=== PATIENT | male | born 1960 | race Caucasian/White ===

== ENCOUNTER 2020-04-26 06:42 | Outpatient (NON) | payer OTHER, SELFPAY ==
[2020-04-28 21:25] LABS: SARS-CoV-2 RNA PCR Positive
== END 2020-04-26 06:43 ==
PROVIDERS: PCP Emergency Medicine; Visit Provider Emergency Medicine
DX: U07.1 COVID-19 (principal); R68.89 Other general symptoms and signs
CPT/HCPCS: 87635; C9803; U0003

== ENCOUNTER 2021-11-30 08:04 | Outpatient (CLI) | payer OTHER, SELFPAY ==
--- NOTE | ~2021-11-30 | NM_ITS ---
EXAMINATION: NM rich stress w perfusion DATE: 11/30/2021 10:54 INDICATION: Chest pain TECHNIQUE: Rest images were obtained following intravenous administration of 10.7 mCi Tc99m tetrofosm in (Myoview). The patient was infused intravenously with Lexiscan (Regadenoson). Then, 34.4 mCi Tc99m tetrofosmin (Myoview) was administered intravenously, and stress images were obtained. Data was sparkle nstructed into short axis and horizontal and vertical long axis SPECT images. Gated SPECT images were also obtained. COMPARISON: None. FINDINGS: There is no definite reversible or fixed perfusion abnormality to suggest ischemia or infar ction. There is normal left ventricular chamber size, wall motion and ejection fraction. Left ventr icular ejection fraction measures 69%. IMPRESSION: 1. Normal myocardial perfusion at rest and during stress. 2. Left ventricular ejection fraction measuring 69%. Reviewed, dictated and finalized at location A.
--- NOTE | 2021-11-30 08:22 | EST_ITS ---
Patient Info Name: Dax Cannon Age: 61 years : 1960 Gender: Male Ht: 73 in Wt: 300 lbs BSA: 2.70 m2 HR: 67 bpm BP: 135 / 80 mmHg Heart Rhythm: Sinus Rhythm Exam Date: 11/30/2021 9:04 AM Exam Location: [facility] Stress Patient Status: Outpatient Admit Date: 11/30/2021 Staff Ordering Physician: Daniel Merlos DO Attending Provider: Daniel Merlos DO Exercise Technologist: Vikki Avina CT Exam Type: CA stress rich w NM Study Info Indications R07.9 - Chest pain, unspecified A regadenoson stress test was performed. Summary 1. 1. Negative lexiscan stress test for ischemic ST changes by ECG criteria. 2. 2. Stable hemodynamics throughout the test. 3. 3. Nuclear scan to follow and will be reported separately. Please correlate with it. 4. 4. Patient informed of the above results. Protocol: Lexiscan Stress ECG Details Stage: REST Duration (min): 1 min : 45 sec HR (bpm): 69 SBP (mmHg): 135 DBP (mmHg): 80 Stage: REST Duration (min): 6 min : 28 sec HR (bpm): 66 SBP (mmHg): 135 DBP (mmHg): 80 Stage: STAGE 1 Duration (min): 0 min : 59 sec HR (bpm): 67 SBP (mmHg): 126 DBP (mmHg): 84 Stage: RECOVERY Duration (min): 1 min : 0 sec HR (bpm): 86 SBP (mmHg): 126 DBP (mmHg): 84 Stage: RECOVERY Duration (min): 2 min : 0 sec HR (bpm): 83 SBP (mmHg): 126 DBP (mmHg): 84 Stage: RECOVERY Duration (min): 3 min : 0 sec HR (bpm): 83 SBP (mmHg): 149 DBP (mmHg): 81 Stage: RECOVERY Duration (min): 3 min : 36 sec HR (bpm): 82 SBP (mmHg): 149 DBP (mmHg): 81 Rest HR: 66 bpm Peak HR: 89 bpm Rest Sys BP: 135 mmHg Peak Sys BP: 149 mmHg Max Pred HR: 161 bpm % Max Pred HR: 55 % Target HR: 137 bpm Max RPP: 13,261 bpm*mmHg Termination Reason: Completed protocol Cardiac Symptoms: Shortness of breath, Headache Total Time: 1 min : 0 sec Rest Frias BP: 80 mmHg Peak Frias BP: 81 mmHg Total Dose: 0.4 mg Resting ECG Sinus rhythm, IRBBB. Stress ECG No ST changes. Arrhythmias None. Report Signatures
== END 2021-11-30 08:05 | disposition home or self-care (01) ==
PROVIDERS: PCP Internal Medicine; Visit Provider Internal Medicine Cardiovascular Disease
DX: R07.89 Other chest pain (principal)
CPT/HCPCS: 78452; 93017; A9502; J2785

== ENCOUNTER 2022-03-21 15:41 | Observation (INO) | payer OTHER, SELFPAY ==
[2022-03-21] VITALS (11 sets, daily range): BP systolic 130–174; BP diastolic 70–99; PULSE 63–80; RESP 13–19; TEMP 36.2–36.6; O2SAT 96–100; BMI 39.7
--- NOTE | ~2022-03-21 | XR_ITS ---
EXAMINATION: XR chest 2V DATE: 03/21/2022 16:04 INDICATION: Chest pain. TECHNIQUE: Frontal and lateral views of the chest were obtained. COMPARISON: Chest 2 views 11/13/2018, chest CT 08/15/2018 FINDINGS: The chest demonstrates clear lungs without pneumonia, pleural effusion, or pneumothorax. Ca rdiomegaly is noted. IMPRESSION: 1. Cardiomegaly. Reviewed, dictated and finalized at location A. IMPRESSION: 1. Cardiomegaly.
--- NOTE | 2022-03-21 15:42 | ECG_ITS ---
Measurements Intervals [place] Rate: 67 P: 31 AL: 172 QRS: -18 QRSD: 97 T: 30 QT: 388 QTc: 410 Interpretive Statements SINUS RHYTHM LOW QRS VOLTAGE IN PRECORDIAL LEADS [QRS DEFLECTION < 1.0 mV IN CHEST LEADS] RIGHT VENTRICULAR CONDUCTION DELAY ABNORMAL ECG COMPARED TO ECG 11/13/2018 17:24:18 NO CHANGES Electronically Signed On 03-22-2022 13:51:08 CDT by Kobe Luevano M.D.
--- NOTE | 2022-03-21 16:17 | ED.CHESTPAIN ---
HPI - Chest Pain General Chief Complaint: Chest Pain Stated Complaint: chest pain Time Seen by Provider: 03/21/22 16:16 Source: patient Mode of arrival: ambulatory Limitations: no limitations History of Present Illness HPI narrative: 62 years old white female drove himself to the emergency room complaining of intermittent chest pain over the last 48 hours, like flutters, with numbness of hands, usually last for 1 to 2 seconds each time, currently patient feeling numbness of the hands. He denies any radiation of pain, diaphoresis. History of hypertension, hyperlipidemia, diabetes, obesity, coronary stent times 06/2005 Related Data Home Medications Medication Instructions Recorded Confirmed aspirin 81 mg chewable tablet 81 mg PO DAILY 06/03/19 10/26/21 Allergies Allergy/AdvReac Type Severity Reaction Status Date / Time No Known Allergies Allergy Verified 10/26/21 09:42 Review of Systems Review of Systems: All systems reviewed & are unremarkable except as noted in HPI and below PMFSH Past Medical History Medical History (Updated 03/21/22 @ 16:40 by Ronnell Felix MD) Coronary artery disease Diabetes mellitus HLD (hyperlipidemia) Hypertension Family History Family History Other Family history of malignant neoplasm Hypertension Social History Social History Smoking status: Never smoker Smoking end date: 06/02/05 Alcohol intake: current Exam Narrative: General appearance: Well-developed, well-nourished Skin: Normal color Head: Normocephalic, nontraumatic Eyes: Clear conjunctiva ENT: Oropharynx normal, ears normal, nose normal Neck: Supple, nontender Chest and respiratory: Airway patent, no respiratory distress, no accessory muscle use Heart: Regular rate/rhythm Abdomen: Soft, nontender, no organomegaly, quiet bowel sounds Vascular: Normal peripheral pulses, normal capillary refill. Musculoskeletal: Normal range of motion, nontender back Neurologic: Alert and oriented ?3, MINERAL ECONOMIST is normal as tested, no gross motor deficit Course Consultations Consultation #1: DR CONN Date: 03/21/22 Time: 16:42 Vital Signs Vital signs: Vital Signs Temperature 36.6 C 03/21/22 16:07 Pulse Rate 80 03/21/22 16:07 Respiratory Rate 18 03/21/22 16:07 Blood Pressure 174/99 H 03/21/22 16:07 Pulse Oximetry 100 03/21/22 16:07 Oxygen Delivery Room Air 03/21/22 16:07 Temperature 36.6 C 03/21/22 16:07 Pulse Rate 80 03/21/22 16:07 Respiratory Rate 18 03/21/22 16:07 Blood Pressure 174/99 H 03/21/22 16:07 Pulse Oximetry 100 03/21/22 16:07 Oxygen Delivery Room Air 03/21/22 16:07 MDM - Chest Pain Differential Diagnosis Differential diagnosis: Likely stable angina, unstable angina pectoris, atypical chest pain and chest pain Imaging Data Radiologist's impression: Impressions Chest X-Ray 03/21/22 16:06 IMPRESSION: 1. Cardiomegaly. ECG Data EKG #1: Attestation: I personally reviewed and interpreted this ECG as follows: ECG completion date: 03/21/22 ECG completion time: 16:35 Interpretation: Normal sinus rhythm at 67 bpm, do low QRS voltage in precordial leads, right bundle branch block, incomplete, incomplete right bundle branch block is new compared to the last EKG on November 13, 2018 Critical Care Time Critical Care Time Critical Care Time: Yes Total Critical Care Time: 30 Discharge Plan Discharge Clinical Impression: Chest pain Patient Disposition: Still a Patient Condition: Stable Additional Instructions: Admit to hospitalist
--- NOTE | 2022-03-21 16:27 | PC.NURSE ---
Patient took 81mg ASA TEAM PRIMARY CARE PHYSICIAN. Per EDP Felix give 243mg ASA.
[2022-03-21 16:42] LABS: Basophils Percent Auto 0.6 % (0.2-1.2); Eosinophils Absolute Auto 0.2 K/mm3 (0-0.3); Eosinophils Percent Auto 2.2 % (0-4.4); Hematocrit 39.8 % (42.0-52.0); Hemoglobin 13.5 g/dL (14.0-18.0); Immature Granulocyte Absolute 0.03 K/mm3 (0.00-0.031); Immature Granulocyte Percent A 0.4 % (0-0.5); Lymphocytes Absolute Auto 1.97 K/mm3 (0.9-3.2); Lymphocytes Percent Auto 29.1 % (18.3-44.2); Mean Corpuscular HGB Conc 33.9 g/dl (32-36); Mean Corpuscular Hemoglobin 31.3 pg (26-34); Mean Corpuscular Volume 92.1 fl (80-100); Mean Platelet Volume 8.6 fl (7.4-10.4); Monocytes Absolute Auto 0.6 K/mm3 (0.1-0.6); Monocytes Percent Auto 8.8 % (2.6-8.5); Neutrophils Percent Auto 58.9 % (45.5-73.1); Platelet Count Result 259 k/mm3 (150-375); Red Blood Count 4.32 M/mm3 (4.6-6.20); Red Cell Distribution Width 12.6 % (11.5-14.5); White Blood Count 6.8 K/mm3 (4.5-10.0)
[2022-03-21] MEDS: ASPIRIN 81 MG CHEWABLE TABLET 324 MG PO (16:45)
[2022-03-21 16:52] LABS: Alanine Aminotransferase 27 U/L (6-50); Albumin Level 4.4 g/dL (3.5-5.1); Alkaline Phosphatase 70 U/L (38-126); Anion Gap 9 mmol/L (8-16); Aspartate Amino Transferase 25 U/L (17-59); Bilirubin,Total 0.6 mg/dL (0.2-1.3); Blood Urea Nitrogen 14 mg/dL (9-20); Calcium 8.9 mg/dL (8.4-10.2); Carbon Dioxide 24 mmol/L (22-30); Chloride 104 mmol/L (98-107); Estimated CRCL calculation 110 ml/min; Estimated Glomerular Filt Rate > 60; Glucose 100 mg/dL (65-110); Lipase 110 U/L (23-300); Potassium 3.9 mmol/L (3.4-5.0); Prothrombin Time 13.2 Seconds (11.1-14.7); Sodium 137 mmol/L (137-145)
[2022-03-21 16:53] LABS: Partial Thromboplastin Time 30.4 SECONDS (22.3-36.8)
--- NOTE | 2022-03-21 16:56 | PM.CNCAR ---
Assessment and Plan Assessment and plan (1) Chest pain: Code(s): R07.9 - Chest pain, unspecified Status: Acute Assessment and Plan: Atypical, probably non-cardiac. 11/30/21 Lexiscan myoview: Negative. EKG is unremarkable. Await troponin. (2) Coronary artery disease: Code(s): I25.10 - Atherosclerotic heart disease of [place] coronary artery without angina pectoris Status: Acute (3) Hypertension: Code(s): I10 - Essential (primary) hypertension Status: Acute Assessment and Plan: Mildly high in ER. Continue Metoprolol. (4) HLD (hyperlipidemia): Qualifiers: Hyperlipidemia type: mixed hyperlipidemia Qualified Code(s): E78.2 - Mixed hyperlipidemia Code(s): E78.5 - Hyperlipidemia, unspecified Status: Acute Assessment and Plan: On Atorvastatin. History of Present Illness History of Present Illness Consult date/time: 03/21/22 16:56 Reason For Visit: chest pain Narrative: 62 yr old man who is my regular cardiology patient presents to ER with chest pain. He has a history of CAD, hypertension, dyslipidemia, covid infection on 04/26/20. Reports that yesterday at rest he had fluttering in his chest for seconds, and since then he felt vague something is not right . He reports bilateral hand numbness, sharp chest pain for 2 seconds, and pain down his left thigh. Due to these symptoms he decided to come in for evaluation. States he gained 30 pounds this past year as he changed jobs and more sedentary. He is more limited with heel pain from prior fracture. Denies chest pain, sob, orthopnea, PND, edema, palpitations. 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 EKG (Sinus rhythm, low voltage in precordial leads.) - 11/17/2015 STRESS TESTS: 11/30/21 Lexiscan myoview: Negative for ischemia. ETT (Negative for ischemia; exercised for 8 minutes.) - 11/17/2015 Review of Systems Constitutional: Constitutional: Reports as per HPI, Denies chills and Denies fever(s) Cardiovascular: Cardiovascular: Reports as per HPI, Reports chest pain, Reports irregular heart rhythm, Denies leg edema and Denies lightheadedness Respiratory: Respiratory: Reports as per HPI and Denies dyspnea Gastrointestinal: Gastrointestinal: Reports as per HPI and Denies abdominal pain Genitourinary: Genitourinary: Reports as per HPI and Denies dysuria Musculoskeletal: Musculoskeletal: Reports as per HPI Neurologic: Reports as per HPI, Denies dizziness and Denies syncope [facility] Past Medical History Medical History (Updated 03/21/22 @ 16:40 by Ronnell Felix MD) Coronary artery disease Diabetes mellitus HLD (hyperlipidemia) Hypertension Family History Family History Other Family history of malignant neoplasm Hypertension Social History Social History Smoking status: Never smoker Smoking end date: 06/02/05 Alcohol intake: current Meds Home Medications and Allergies Home Medications Medication Instructions Recorded Confirmed Type aspirin 81 mg chewable tablet 81 mg PO DAILY 06/03/19 10/26/21 History nitroglycerin 400 mcg/spray See Rx Instructions .Route 12/07/20 10/26/21 Rx translingual .COMPLEX #4.9 grams gabapentin 300 mg capsule 300 mg PO TID #270 caps 02/09/21 10/26/21 Rx atorvastatin 20 mg tablet See Rx Instructions .Route 04/09/21 10/26/21 Rx .COMPLEX #90 tabs metoprolol succinate 25 mg See Rx Instructions .Route 01/23/22 Rx tablet,extended release 24 hr .COMPLEX #90 tabs Allergies Allergy/AdvReac Type Severity Reaction Status Date / Time No Known Allergies Allergy Verified
[2022-03-21 17:04] LABS: Troponin I < 0.012 ng/mL (0.000-0.034)
[2022-03-21 19:06] LABS: Troponin I < 0.012 ng/mL (0.000-0.034)
[2022-03-21] MEDS: METOPROLOL TARTRATE 50 MG TAB 25 MG PO (19:08)
--- NOTE | 2022-03-21 20:17 | ADMGEN ---
This patient, Dax Cannon, was admitted to IMU Room 209-01 at 2015. Patient/family oriented to hospital policies and general routines including ID bracelet, bed and alarms, visiting hours, pain management, procedures, bathroom and other care routines, personal items, smoking policy, room service/diet, and visiting hours. Information on how to activate the Rapid Response Team has been discussed. Patient/Family are encouraged to report perceived risks to care and to ask questions if they do not understand what they are told or what they should do.
[2022-03-21 21:13] LABS: Troponin I < 0.012 ng/mL (0.000-0.034)
[2022-03-21 23:54] LABS: Troponin I < 0.012 ng/mL (0.000-0.034)
--- NOTE | 2022-03-21 23:58 | PM.IMHP ---
H&P: HPI History of Present Illness Date/Time: 03/21/22 23:58 Chief Complaint: CHEST PAIN Narrative: This is a 62-year-old male patient with a history of hypertension and coronary artery disease. The patient stated that he does have 1 stent. The patient states that he sees Dr. lutz. The patient stated that he drove himself to the hospital due to complaints of intermittent chest pain that has lasted over the last 48 hours. He felt like it was fluttering. He had numbness to his hands and this last for 1-2 seconds at a time. The patient denies the diagnosis of diabetes. The patient stated that he did have a stress test in November which was a Lexiscan. Patient's H&H is 13.5 and 39.8 today. He has 2- troponins. His sheet metal mechanic has been consulted. His sheet metal mechanic has seen him in the emergency room. His EKG was read as sinus rhythm with a incomplete right bundle-branch block. The patient had an echo and MUGA scan with EF of 60% grade 2 diastolic dysfunction. This was in 2015. Review of Systems Review of Systems: See HPI All systems reviewed & are unremarkable except as noted in HPI and below Constitutional: Constitutional: Reports as per HPI and Reports no additional constitutional complaints Eyes: Eyes: Reports as per HPI and Reports no additional eye complaints ENT: Reports system reviewed and no additional complaints, except as documented and Reports Normal hearing present Cardiovascular: Cardiovascular: Reports no additional cardiovascular complaints Respiratory: Respiratory: Reports no additional respiratory complaints and Reports no additional respiratory complaints Gastrointestinal: Gastrointestinal: Reports as per HPI and Reports no additional gastrointestinal complaints Musculoskeletal: Musculoskeletal: Reports no additional musculoskeletal complaints Integumentary/Breasts: Skin/Breast: Reports system reviewed and no additional complaints, except as docu and Reports as per HPI Neurologic: Reports system reviewed and no additional complaints, except as documented, Reports as per HPI and Reports Normal hearing present Psychiatric: Psychiatric: Reports no additional psychiatric complaints and Reports as per HPI Endocrine: Endocrine: Reports no additional endocrine complaints Hematologic/Lymphatic: Hematologic/Lymphatic: Reports no additional hematologic/lymphatic complaints Allergic/Immunologic: Allergic/Immunologic: Reports no additional allergic/immunologic complaints PMFSH Past Medical History Medical History Coronary artery disease HLD (hyperlipidemia) Hypertension Surgical History Surgical History H/O foot surgery H/O heart artery stent Family History Family History Other Family history of malignant neoplasm Hypertension Social History Social History (Updated 03/22/22 @ 00:57 by Vera Colon NP) Social History: The patient lives with his and he has no children. 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 His is his durable power of authorization rep for healthcare. He occasionally has a drink of alcohol. Code status full code. Smoking status: Former smoker Smoking end date: 06/02/05 Alcohol intake: current Substance use: never Spiritual care concerns: No Has the Lack of Transportation Kept You From Medical Appointments or From Getting Medications?: No Within the Past 12 Months, Were You Worried Whether Your Food Would Run Out Before You Got Money to Buy More?: Never True What is Your Housing Situation Today?: I Have Housing Are You Worried That in the Next 2 Months, You May Not Have Your Own Housing to Live In?: No Do You Have Trouble Paying Your Heating Or Electricity Bill?: No Do You Have Trouble Paying For Medicines?: No Are You Currently Unemployed and Looking for Work?: No Highest Level of
[2022-03-22] VITALS (11 sets, daily range): BP systolic 121–147; BP diastolic 73–85; PULSE 58–71; RESP 14–18; TEMP 36.1–36.6; O2SAT 94–100
--- NOTE | 2022-03-22 | ECHO_ITS ---
Patient Info Name: Dxa Cannon Age: 62 years : 1960 Gender: Male Ht: 70 in Wt: 304 lbs BSA: 2.68 m2 HR: 65 bpm BP: 132 / 82 mmHg Heart Rhythm: Sinus Rhythm Technical Quality: Fair Exam Date: 03/22/2022 9:17 AM Exam Location: [facility] Pulmonary Patient Status: Outpatient Admit Date: 03/21/2022 Staff Ordering Physician: Daniel Merlos DO Financial Cost Analyst: Iva Gonzalez RDCS Attending Provider: Sid Austin MD Referring Physician: Gaurang CROSS; Exam Type: CA echo doppler color flow Study Info Indications R07.9 - Chest pain, unspecified Complete two-dimensional, color flow and Doppler transthoracic echocardiogram is performed. Summary 1. Complete two-dimensional, color flow and Doppler transthoracic echocardiogram is performed. 2. Left ventricular chamber dimension is normal. 3. Left ventricular systolic function is normal, estimated at 60-65%. 4. There is mildly increased left ventricular wall thickness. 5. The left ventricular diastolic function is grade I diastolic dysfunction. 6. E/e' 11 is mildly elevated. 7. No pulmonary hypertension, estimated pulmonary arterial systolic pressure is 19 mmHg. 8. There is small circumferential pericardial effusion. Left Ventricle E/e' 11 is mildly elevated. Left ventricular chamber dimension is normal. Left ventricular systolic function is normal, estimated at 60-65%. There is mildly increased left ventricular wall thickness. The left ventricular diastolic function is grade I diastolic dysfunction. Right Ventricle Right ventricular systolic function is normal and with normal TAPSE 1.9 cm. Right ventricular chamber dimension is normal. Left Atria Left atrial chamber dimension is normal. Right Atria Right atrial chamber dimension is normal. Aortic Valve The aortic valve is trileaflet. There is no aortic valve stenosis. There is no aortic valve regurgitation. Pulmonic Valve There is no pulmonic regurgitation. Mitral Valve There is no mitral valve stenosis. There is no mitral valve regurgitation. Tricuspid Valve There is no tricuspid valve regurgitation. No pulmonary hypertension, estimated pulmonary arterial systolic pressure is 19 mmHg. Pericardium/Pleural There is small circumferential pericardial effusion. No cardiac tamponade. Inferior Vena Cava Normal inferior vena cava with >50% collapse upon inspiration consistent with normal right atrial pressure, 5 mmHg. Aorta The aortic root size at the sinus of Valsalva is normal. Left Ventricular Outflow Tract Name Value Normal LVOT 2D LVOT Diameter 2.1 cm LVOT Doppler LVOT Peak Gradient 3 mmHg LVOT Mean Gradient 2 mmHg LVOT VTI 19 cm LVOT VTI/AV VTI Ratio 0.8 LVOT Stroke Volume 68 ml LVOT CO 4.3 l/min LVOT CI 1.6 l/min/m2 Pulmonic Valve Name
[2022-03-22 05:13] LABS: Basophils Percent Auto 0.6 % (0.2-1.2); Eosinophils Absolute Auto 0.2 K/mm3 (0-0.3); Eosinophils Percent Auto 2.7 % (0-4.4); Hematocrit 39.4 % (42.0-52.0); Hemoglobin 13.3 g/dL (14.0-18.0); Immature Granulocyte Absolute 0.02 K/mm3 (0.00-0.031); Immature Granulocyte Percent A 0.3 % (0-0.5); Lymphocytes Absolute Auto 1.89 K/mm3 (0.9-3.2); Lymphocytes Percent Auto 29.9 % (18.3-44.2); Mean Corpuscular HGB Conc 33.8 g/dl (32-36); Mean Corpuscular Hemoglobin 30.6 pg (26-34); Mean Corpuscular Volume 90.8 fl (80-100); Mean Platelet Volume 8.6 fl (7.4-10.4); Monocytes Absolute Auto 0.6 K/mm3 (0.1-0.6); Monocytes Percent Auto 9.7 % (2.6-8.5); Neutrophils Absolute Auto 3.6 K/mm3 (1.3-6.7); Neutrophils Percent Auto 56.8 % (45.5-73.1); Platelet Count Result 243 k/mm3 (150-375); Red Blood Count 4.34 M/mm3 (4.6-6.20); Red Cell Distribution Width 12.6 % (11.5-14.5); White Blood Count 6.3 K/mm3 (4.5-10.0)
[2022-03-22 05:33] LABS: Alanine Aminotransferase 24 U/L (6-50); Albumin Level 3.9 g/dL (3.5-5.1); Alkaline Phosphatase 63 U/L (38-126); Anion Gap 9 mmol/L (8-16); Aspartate Amino Transferase 22 U/L (17-59); Bilirubin,Total 0.6 mg/dL (0.2-1.3); Blood Urea Nitrogen 15 mg/dL (9-20); Calcium 8.9 mg/dL (8.4-10.2); Carbon Dioxide 25 mmol/L (22-30); Chloride 104 mmol/L (98-107); Estimated CRCL calculation 101 ml/min; Estimated Glomerular Filt Rate > 60; Glucose 103 mg/dL (65-110); Magnesium 2.2 mg/dL (1.6-2.3); Potassium 4.2 mmol/L (3.4-5.0); Sodium 138 mmol/L (137-145)
--- NOTE | 2022-03-22 08:23 | PM.PNCARD ---
Progress Note: A&P Assessment and Plan (1) Chest pain: Code(s): R07.9 - Chest pain, unspecified Status: Acute Assessment and Plan: Atypical, probably non-cardiac. 11/30/21 Lexiscan myoview: Negative. EKG and troponin are normal. Obtain echo. If echo is normal no further cardiac workup is needed at this time, and keep regular cardiology f/u with me. (2) Coronary artery disease: Code(s): I25.10 - Atherosclerotic heart disease of [place] coronary artery without angina pectoris Status: Acute Assessment and Plan: Stable. (3) Hypertension: Code(s): I10 - Essential (primary) hypertension Status: Acute Assessment and Plan: Stable. (4) HLD (hyperlipidemia): Qualifiers: Hyperlipidemia type: mixed hyperlipidemia Qualified Code(s): E78.2 - Mixed hyperlipidemia Code(s): E78.5 - Hyperlipidemia, unspecified Status: Acute Assessment and Plan: On Atorvastatin. Subjective Date/time seen: 03/22/22 08:23 Interval history: No longer having chest pain or arm pain or left thigh pain. Had some abdominal pain now. No palpitations. Exam Const: General: cooperative, healthy appearing and comfortable Nutritional Appearance: obese Resp: Auscultation: clear to auscultation bilaterally, no crackles, no rales, no rhonchi and no wheezes Cardio: Rate: regular rate Rhythm: regular rhythm Heart sounds: no murmurs Peripheral pulses: dorsalis pedis present GI: GI Palp: No abdominal tenderness and Yes Soft to palpation Neuro: General: oriented to person, oriented to place and oriented to time Extrem: Right lower extremity: no edema Left lower extremity: no edema Objective Data Vital Signs Vital Signs: Vital Signs - 24 hr 03/21/22 16:07 03/21/22 16:27 03/21/22 16:27 Temperature 97.8 F Pulse Rate 80 66 Respiratory Rate 18 Blood Pressure 174/99 H Pulse Oximetry 100 98 Oxygen Delivery Room Air Room Air 03/21/22 16:32 03/21/22 17:13 03/21/22 17:15 Temperature Pulse Rate 68 65 65 Respiratory Rate 15 19 16 Blood Pressure Pulse Oximetry 99 98 98 Oxygen Delivery 03/21/22 17:17 03/21/22 18:45 03/21/22 19:15 Temperature Pulse Rate 64 71 74 Respiratory Rate 19 16 13 Blood Pressure 130/70 Pulse Oximetry 99 99 96 Oxygen Delivery 03/21/22 20:28 03/21/22 22:00 03/21/22 23:30 Temperature 97.2 F L Pulse Rate 63 72 72 Respiratory Rate 16 16 Blood Pressure 147/85 H Pulse Oximetry 100 100 Oxygen Delivery Room Air 03/22/22 00:00 03/22/22 00:00 03/22/22 02:00 Temperature 97 F L Pulse Rate 66 62 62 Respiratory Rate 16 Blood Pressure 147/85 H Pulse Oximetry 100 Oxygen Delivery 03/22/22 04:00 03/22/22 04:00 03/22/22 04:00 Temperature 97.9 F Pulse Rate 58 L 65 65 Respiratory Rate 16 16 Blood Pressure 132/82 Pulse Oximetry 94 94 Oxygen Delivery Room Air 03/22/22 06:00 Temperature Pulse Rate 60 Respiratory Rate Blood Pressure Pulse Oximetry Oxygen Delivery Intake/Output Intake/Output: Intake & Output 03/19/22 03/20/22 03/21/22 03/22/22 23:59 23:59 23:59 23:59 Intake Total 900 Output Total 900 Balance 0 Meds/Results Medications: Active Medications Generic Name Dose Route Start Last Admin Trade Name Freq PRN Reason Stop Dose Admin Acetaminophen 650 mg 03/21/22 16:42 Acetaminophen 325 Mg Tablet PO Q4H PRN Mild Pain (1-3) or Fever Aspirin 81 mg 03/22/22 08:00 Aspirin 81 Mg Chewable Tablet PO DAILY@0800 [facility] Atorvastatin Calcium 20 mg 03/22/22 09:00 Atorvastatin 20 Mg Tablet PO DAILY [facility] Enoxaparin Sodium 40 mg 03/22/22 09:00 Enoxaparin 40 Mg/0.4 Ml Syringe SUB-Q DAILY [facility] Gabapentin 300 mg 03/22/22 09:00 Gabapentin 300 Mg Capsule PO TID [facility] Metoprolol Succinate 25 mg 03/22/22 09:00 Metoprolol Succinate Ext Rel 25 Mg Tabcr PO DAILY [facility] Nitroglycerin 0.
[2022-03-22] MEDS: GABAPENTIN 300 MG CAPSULE PO ×2 (09:20→12:53)
[2022-03-22] MEDS: ENOXAPARIN 40 MG/0.4 ML SYRINGE SUB-Q (09:20)
[2022-03-22] MEDS: ASPIRIN 81 MG CHEWABLE TABLET PO (09:21)
[2022-03-22] MEDS: ATORVASTATIN 20 MG TABLET PO (09:21)
--- NOTE | 2022-03-22 16:48 | PM.DS ---
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 EKG (Sinus rhythm, low voltage in precordial leads.) - 11/17/2015 STRESS TESTS: 11/30/21 Lexiscan myoview: Negative for ischemia. ETT (Negative for ischemia; exercised for 8 minutes.) - Patient chest pain has resolved. Patient denies chest pain, palpitations, nausea, vomiting and says he feels fine. Echo shows EF 60-65% with mildly increased left ventricular wall thickness, Grade I diastolic dysfunction and a small pericardial effusion. Troponin negative. Lexiscan November 2021 showed normal myocardial perfusion at rest and during stress. Cardiology recommended discharge if echo was normal with follow up outpatient. This echo is improved compared to the above echo from 2016, so patient will be dischrged to home with outpatient follow up with his small animal caretaker. (2) Peripheral neuropathy: Code(s): G62.9 - Polyneuropathy, unspecified Status: Acute Assessment and Plan: Continue with gabapentin (3) Hypertension: Code(s): I10 - Essential (primary) hypertension Status: Acute Assessment and Plan: Controlled with metoprolol. (4) HLD (hyperlipidemia): Qualifiers: Hyperlipidemia type: mixed hyperlipidemia Qualified Code(s): E78.2 - Mixed hyperlipidemia Code(s): E78.5 - Hyperlipidemia, unspecified Status: Acute Assessment and Plan: Continue with atorvastatin (5) Coronary artery disease: Code(s): I25.10 - Atherosclerotic heart disease of [place] coronary artery without angina pectoris Status: Acute Assessment and Plan: Continue ASA, statin and beta yung. DS: Summary Hospital Course Reason for hospitalization: Chest Pain Hospital Course: 62M with a past medical history of hypertension, coronary artery disease s/p PCI x1, peripheral neuropathy who presented to the emergency department reporting intermittent chest pain for the past 48 hours and feeling fluttering in his chest with associated numbness in his hands. Patient was seen in the emergency department by his [employer] who recommended completion of cardiac workup and echocardiogram. Troponin was negative. TSH was normal. Echo showed EF 60-65% with mildly increased left ventricular wall thickness, Grade I diastolic dysfunction and a small pericardial effusion. Patient denied having chest pain, shortness of breath, difficulty breathing, nausea, vomiting, palpitations. Patient discharged to home and advised to go to regularly scheduled follow up with his [employer]. Time Spent with Patient Time attestation: Total time spent providing and/or coordinating discharge services: Exam Narrative: GENERAL: NAD, cooperative HEENT: Normocephalic, atraumatic, anicteric NECK: Thick CV: Normal S1, S2, RRR, No MRG RESP: CTAB, Normal work of breathing. EXTREMITIES: Warm and well perfused, no clubbing, cyanosis, or edema. SKIN: warm, dry and intact. NEURO: CN 2-12 grossly intact. DS: Data Data Completed and Pending Labs on day of discharge: Labs from last 24 hours 03/22/22 03/22/22 03/22/22 04:36 04:36 04:36 WBC 6.3 RBC 4.34 L Hgb 13.3 L Hct 39.4 L MCV 90.8 MCH 30.6 MCHC 33.8 RDW 12.6 Plt Count 243 MPV 8.6 Immature Gran % (Auto) 0.3 Neut % (Auto) 56.8 Lymph % (Auto) 29.9 [place] % (Auto) 9.7 H Eos % (Auto) 2.7 Baso % (Auto) 0.6 Lymph # (Au
== END 2022-03-22 17:28 | disposition home or self-care (01) ==
LOC: ANHED 17:00 → ANHIMU 19:50
PROVIDERS: Nurse Practitioner; Admitting Provider Internal Medicine; Emergency Provider Emergency Medicine; PCP Hospitalist; Visit Provider Family Medicine
DX: R07.9 Chest pain, unspecified (principal); G62.9 Polyneuropathy, unspecified; I11.9 Hypertensive heart disease without heart failure; E78.2 Mixed hyperlipidemia; I25.10 Atherosclerotic heart disease of native coronary artery without angina pectoris; Z95.5 Presence of coronary angioplasty implant and graft; R20.0 Anesthesia of skin; E66.9 Obesity, unspecified; Z68.39 Body mass index [BMI] 39.0-39.9, adult; E11.9 Type 2 diabetes mellitus without complications; F10.90 Alcohol use, unspecified, uncomplicated; R94.31 Abnormal electrocardiogram [ECG] [EKG]; Z86.16 Personal history of COVID-19; Z79.899 Other long term (current) drug therapy; Z79.82 Long term (current) use of aspirin; Z87.891 Personal history of nicotine dependence; Z82.49 Family history of ischemic heart disease and other diseases of the circulatory system
CPT/HCPCS: 36415; 71046; 80053; 83690; 83735; 84443; 84484; 85025; 85610; 85730; 93005; 93306; 96372; 99285; A9270; G0378; J1650

== ENCOUNTER 2022-09-28 18:36 | Emergency (ER) | payer OTHER, SELFPAY ==
--- NOTE | 2022-09-28 18:39 | ED.GENADULT ---
HPI - General Adult General Chief complaint: Skin/Abscess/Foreign Body Stated complaint: rash Time Seen by Provider: 09/28/22 18:39 Source: patient Mode of arrival: ambulatory Limitations: no limitations History of Present Illness HPI narrative: 8-year-old male patient presents to the [facility] with complaints of a rash to bilateral arms and left flank that came up suddenly tonight. Patient states he was sitting watching TV and noticed bump to his right arm than 2 bumps and then patient states before he knows knows that he broke out into a rash. Patient states he has taken Benadryl prior to arrival today. Denies any new soaps lotions or detergents. Patient states he has not come in to get contact with anything that he is allergic to that he is aware of. Patient denies any trouble with breathing or swallowing denies any facial swelling. Related Data Home Medications Medication Instructions Recorded Confirmed aspirin 81 mg chewable tablet 81 mg PO DAILY 06/03/19 03/21/22 nitroglycerin 400 mcg/spray 1 spray sublingual DIRECTED 03/21/22 03/21/22 translingual Allergies Allergy/AdvReac Type Severity Reaction Status Date / Time No Known Allergies Allergy Verified 09/28/22 19:07 Review of Systems Review of Systems: CONSTITUTIONAL: Denies fever, chills, or sweats. EYES: Denies visual changes, redness, or discharge. ENT: Denies rhinorrhea, congestion, sore throat, or otalgia. CARDIOVASCULAR: Denies chest pain, palpitations, or edema. RESPIRATORY: Denies cough or dyspnea. GASTROINTESTINAL: Denies abdominal pain, nausea, vomiting, or diarrhea. GENITOURINARY: Denies dysuria or hematuria. SKIN: Positive rash with itching. MUSCULOSKELETAL: Denies back pain, joint pain, or myalgia. NEUROLOGIC: Denies headache, numbness, or weakness. PSYCHIATRIC: Denies anxiety or depression. [facility] Past Medical History Medical History Coronary artery disease HLD (hyperlipidemia) Hypertension Surgical History Surgical History H/O foot surgery H/O heart artery stent Family History Family History Other Family history of malignant neoplasm Hypertension Social History Social History Social History: The patient lives with his and he has no children. 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 His is his durable [employer] of [employer] custodian for healthcare. He occasionally has a drink of alcohol. Code status full code. Smoking status: Former smoker Smoking end date: 06/02/05 Alcohol intake: current Substance use: never Lack of Transportation: No Lack of Food: Never True Current Housing: I Have Housing Concerned About Future Housing: No Difficulty Paying Gas/Electric Bills: No Difficulty Paying for Meds: No Currently Unemployed: No Education: Associate Degree Difficulty w/ Childcare or Family Care: No Spiritual care concerns: No Comments At the time of my signature I agree with nursing past medical history, surgical, social, and family history. There is no relevant family history pertinent to the presenting complaint. Exam Narrative: GENERAL: Well-appearing, well-nourished, and in no acute distress. HEAD: Normocephalic, atraumatic. EYES: PERRLA and EOMI. ENT: Nares clear, no rhinorrhea or epistaxis. Mucous membranes moist. NECK: Supple. No lymphadenopathy CHEST: Clear to auscultation. No respiratory distress. HEART: Regular rate and rhythm. No murmur heard. Normal peripheral pulses. ABDOMEN: Soft, nontender, nondistended, normal active bowel sounds. EXTREMITIES: Normal range of motion. No edema. SKIN: Warm, dry, patient has wheal like rash noted bilateral arms and to the left flank and abdomen area. There is no open wounds the areas or discharge present. Patien
[2022-09-28 18:54] VITALS: BP 141/82; PULSE 68; RESP 18; TEMP 36.4; O2SAT 98
== END 2022-09-28 19:10 | disposition home or self-care (01) ==
PROVIDERS: Emergency Provider Nurse Practitioner Family; PCP Hospitalist
DX: L50.9 Urticaria, unspecified (principal); Z87.891 Personal history of nicotine dependence; I25.10 Atherosclerotic heart disease of native coronary artery without angina pectoris; E78.5 Hyperlipidemia, unspecified; I10 Essential (primary) hypertension; Z95.5 Presence of coronary angioplasty implant and graft; Z79.82 Long term (current) use of aspirin
CPT/HCPCS: 99213; G0463